=== PATIENT | female | born 1975 | race Caucasian/White ===

== ENCOUNTER 2017-05-31 11:23 | Emergency (ER) | payer OTHER ==
[2017-05-31 11:33] VITALS: TEMP 97.8; BMI 29.0
--- NOTE | 2017-05-31 12:06 | PDOC ---
Attending Attestation - Resident Resident Name: Flynn Pulido - ED Attending Attestation I have performed the following: I have examined & evaluated the patient, The case was reviewed & discussed with the resident, I agree w/resident's findings & plan, Exceptions are as noted - HPI HPI: 05/31/17 12:04 41y F hx of gastritis, presents with complaint of abdominal pain. Pt notes that she had mild epigastric pain yesterday but today, the pain got worse, and is assoiated with nausea w/o vomiting as well asl several episodes of watery brown stool. Dneies any melena, bpr. Pt also notes she feels 'shaky', but denies and cp, meyer, hemoptysis, leg sweling. Pt notes one prior episode of similar symptoms last year. No recent travel or sick contacts. No abx use. surgical hx - tubal ligation GENERAL: The patient is awake, alert, and fully oriented, Nontoxic - in no acute distress. HEAD: Normocephalic, atraumatic. EYES: extraocular movements intact, sclera anicteric, conjunctiva clear. ENT: Normal voice, Moist mucous membranes. NECK: Normal range of motion, supple LUNGS: Breath sounds equal, clear to auscultation bilaterally. No wheezes, no rhonchi, no rales. HEART: Regular rate and rhythm, normal S1 and S2 without murmur, rub or gallop. ABDOMEN: active bowel sounds in all 4 quadrants, mild diffuse tenderness, No guarding, no rebound. No CVA tenderness EXTREMITIES: Normal range of motion, no edema. NEUROLOGICAL: No facial assymetry, Normal speech, moivng all 4 extremities spontaneously and symmetrically PSYCH: Normal mood, normal affect. SKIN: Warm, Dry, normal turgor, Differential includes possible gastritis, gastroenteritis. No focal localized tenderness suggest localized peritonitis Will obtain blood work Zofran, morphine, Pepcid and Maalox for symptomatic relief 05/31/17 13:36 pt feeling improved abd soft nontender labs unremarkble will dc the pt with supporitve measures suspect gastroenteritis pmd fu return precautions were discussed - Physicial Exam PE: 06/01/17 20:25 see above - Medical Decision Making 06/01/17 20:25 se eabove Heart Score/ECG Review - ECG Impressions Comment:: 05/31/17 13:16 Twelve-lead EKG was performed and reviewed by me. There is normal sinus rhythm with a normal rate. Rate of 86 Incomplete right bundle-branch block Inverted T waves and flattening in the septal leads No Prior EKGs for comparison
[2017-05-31] MEDS ORDERED: SODIUM CHLORIDE 1,000 ML IV STA (12:12)
[2017-05-31] MEDS ORDERED: ONDANSETRON 4 MG/2 ML VIAL IVPUSH ONE (12:12)
[2017-05-31] MEDS ORDERED: FAMOTIDINE 20 MG/50 ML IVPB 20 MG/50 ML MG IVPB ONE ×2 (12:12→12:32)
[2017-05-31] MEDS ORDERED: MAG HYDROX/AL HYDROX/SIMETH 30 ML UNIT-DOSE CUP PO ONE (12:13)
--- NOTE | 2017-05-31 12:27 | PDOC ---
History of Present Illness - General Chief Complaint: Diarrhea Stated Complaint: BLOOD PRESSURE PROBLEM Time Seen by Provider: 05/31/17 11:54 - History of Present Illness Initial Comments: 05/31/17 12:21 The patient is a 41 year old with a history of anxiety and gastritis who presents for evaluation of epigastric abdominal pain and diarrhea. The patient reports having an episode of increased anxiety and chills with crying 1 hour prior to presentation in the ED. She states that those symptoms have since resolved, but she is now experiencing epigastric burning abdominal pain that is similar to her prior gastritis with associated nausea without vomiting and some diarrhea. She otherwise denies fevers, SOB, chest pain, or changes with urination or bowel movements. Past History - Past Medical History Allergies/Adverse Reactions: Allergies Allergy/AdvReac Type Severity Reaction Status Date / Time No Known Allergies Allergy Verified 05/31/17 11:26 Home Medications: Ambulatory Orders NK [No Known Home Medication] 05/31/17 COPD: No GI Disorders: Yes (gastritis) Other medical history: panic attacks - Suicide/Smoking/Psychosocial Hx Smoking History: Never smoked Have you smoked in the past 12 months: No Information on smoking cessation initiated: No Hx Alcohol Use: No Drug/Substance Use Hx: No Substance Use Type: None Review of Systems - Review of Systems Comments:: 05/31/17 12:27 Constitutional: No fevers, fatigue, malaise HEENT: No Rhinorrhea, nasal congestion, visual changes Cardiovascular: No chest pain, syncope, palpitations, lightheadedness Respiratory: No Cough, SOB, Hemoptysis, Gastrointestinal: Epigastric abdominal pain, Nausea, Diarrhea. No Vomiting, Constipation, Melena Genitourinary: No Dysuria, Frequency, Urgency, Hesitancy, Hematuria, Flank pain Musculoskeletal: No Myalgia, arthralgia Skin: No rashes, itching, bruising, pallor Neurologic: No Headache, Dizziness, Numbness, Weakness, or Tingling Psychiatric: No Hallucinations. No SI or HI *Physical Exam - Vital Signs Last Vital Signs Temp Pulse Resp BP Pulse Ox 97.8 F 88 16 120/72 99 05/31/17 11:27 05/31/17 11:54 05/31/17 11:54 05/31/17 11:54 05/31/17 12:07 - Physical Exam Comments: 05/31/17 12:34 General Appearance: Nourished. No Apparent Distress HEENT: EOMI, BLAKE. No Pharyngeal Erythema, Tonsillar Exudate, Tonsillar Erythema Neck: No Cervical Lymphadenopathy Respiratory/Chest: Lungs Clear, Normal Breath Sounds. No Crackles, Rales, Rhonchi, Wheezing Cardiovascular: Regular Rhythm, Regular Rate. No Murmur, Gallops, Rubs Gastrointestinal/Abdominal: Normal Bowel Sounds, Soft. Mild epigastric tenderness to palpation. No Guarding, Rebound, Musculoskeletal: No CVA Tenderness Extremity: Normal Capillary Refill Integumentary: Normal Color, Dry, Warm Neurologic: Fully Oriented, Alert, Normal Mood/Affect, Normal Response, ED Treatment Course - LABORATORY CBC & Chemistry Diagram: 05/31/17 12:15 05/31/17 12:15 Medical Decision Making - Medical Decision Making 05/31/17 12:36 The patient is a 41 year old with a history of anxiety and gastritis who presents for evaluation of epigastric abdominal pain and diarrhea. Differential includes but is not limited to: Gastritis, Gastroenteritis, pancreatitis, cholecysitis, infectious, metabolic derangement. Given the patient's physical exam and history, it is likely her symptoms are due to Gastritis. We will obtain a cbc, cmp, lipase, ekg to evaluate for other possible etiologies. We will treat here in the ER with iv fluids, pepcid, zofran, and mylanta. We will continue to monitor and reassess. 05/31/17 13:41 cbc, cmp, lipase are unremarkable. The patient reports significant improvement in her symptoms. We are comfortable discharging the patient home at this time with close primary care provider follow up. We discuss return precautions with the patient including worsening pain or vomiting. The patient voiced understanding and is agreeable with the plan. *DC/Admit/Observation/Transfer Diagnosis at time of Disposition: Nausea Abdominal pain Qualifiers: Abdominal location: unspecified location Qualified Code(s): R10.9 - Unspecified abdominal pain Diarrhea Qualifiers: Diarrhea type: unspecified type Qualified Code(s): R19.7 - Diarrhea, unspecified - Discharge Dispostion Disposition: HOME Condition at time of disposition: Good Admit: No - Referrals Referrals: Ian Mahoney MD [Primary Care Provider] - - Patient Instructions Printed Discharge Instructions: DI for Abdominal Pain-Adult Additional Instructions: Please return to the ER if you experience concerning or worsening symptoms including worsening abdominal pain, vomiting, fevers, or difficulty breathing. Your lab results were normal here in the ER. It is important that you call your primary care provider to schedule a follow up appointment within 2-3 days to further discuss management of your symptoms. Por favor, regrese a la lisa de emergencias si experimenta problemas o empeoramiento de los sntomas incluyendo el empeoramiento del dolor abdominal, v mitos, fiebres o dificultad para respirar. Los resultados de tu laboratorio fueron normales aqu en urgencias. Es importante que llame a cuenca proveedor de atencin primaria para programar kaiden katlyn de seguimiento dentro de 2-3 dickerson para discutir ms sobre la administraci n de rob sntomas. Print Language: KHMER - Post Discharge Activity
[2017-05-31 12:28] LABS: EOS % 0.3 % (0-4.5); HEMATOCRIT 39.8 % (32.4-45.2); HEMOGLOBIN 13.3 GM/dL (10.7-15.3); LYMPH % 13.5 % (8-40); MCH 29.5 pg (25.7-33.7); MCHC 33.4 g/dl (32.0-36.0); MEAN CELL VOLUME 88.2 fl (80-96); MEAN PLT VOLUME 8.6 fl (7.5-11.1); MONO % 6.4 % (3.8-10.2); NEUT % 78.8 % (42.8-82.8); PLATELET COUNT 235 K/MM3 (134-434); RBC 4.51 M/mm3 (3.60-5.2); RDW 13.7 % (11.6-15.6); WHITE BLOOD COUNT 9.4 K/mm3 (4.0-10.0)
[2017-05-31] MEDS ORDERED: MAG HYDROX/AL HYDROX/SIMETH 30 ML UNIT-DOSE CUP ONE (12:32)
[2017-05-31] MEDS ORDERED: ONDANSETRON 4 MG/2 ML VIAL ONE (12:32)
[2017-05-31] MEDS ORDERED: morphine CARPU-JECT 2 MG/1 ML DISP.SYRIN IVPUSH ONE (12:38)
[2017-05-31] MEDS ORDERED: MORPHINE SULFATE 10 MG/1 ML *VIAL ONE (12:49)
[2017-05-31 12:58] LABS: ALBUMIN 3.9 g/dl (3.4-5.0); ALK PHOS 78 U/L (45-117); ANION GAP 15 (8-16); BILIRUBIN,TOTAL 0.4 mg/dL (0.2-1.0); BLOOD UREA NITROGEN 14 mg/dL (7-18); CALCIUM 8.5 mg/dL (8.5-10.1); CHLORIDE 104 mmol/L (98-107); CO2 22 mmol/L (21-32); CREATININE 0.8 mg/dL (0.55-1.02); GLUCOSE,RANDOM 92 mg/dL (74-106); LIPASE 100 U/L (73-393); POTASSIUM 3.9 mmol/L (3.5-5.1); SGOT/AST 20 U/L (15-37); SGPT/ALT 24 U/L (12-78); SODIUM 141 mmol/L (136-145); TOT PROT 7.5 g/dl (6.4-8.2)
[2017-05-31 15:10] VITALS: BP 120/78; PULSE 78
--- NOTE | 2017-06-01 10:46 | EKG ---
Test Reason : Blood Pressure : / mmHG Vent. Rate : 086 BPM Atrial Rate : 086 BPM P-R Int : 130 ms QRS Dur : 094 ms QT Int : 384 ms P-R-T Axes : 058 061 026 degrees QTc Int : 459 ms NORMAL SINUS RHYTHM POSSIBLE LEFT ATRIAL ENLARGEMENT INCOMPLETE RIGHT BUNDLE BRANCH BLOCK T WAVE ABNORMALITY, CONSIDER ANTERIOR ISCHEMIA ABNORMAL ECG NO PREVIOUS ECGS AVAILABLE Confirmed by SWEETIE RIVER MD ([id number]) on 06/01/2017 10:46:30 AM Referred By: Confirmed By:SWEETIE RIVER MD
== END 2017-05-31 14:30 | disposition home or self-care (01) ==
LOC: JER 11:23
PROC: 3E033NZ Introduction of Analgesics, Hypnotics, Sedatives into Peripheral Vein, Percutaneous Approach (ICD-10-PCS; principal; 2017-05-31)
PROC: 3E033GC Introduction of Other Therapeutic Substance into Peripheral Vein, Percutaneous Approach (ICD-10-PCS; 2017-05-31)
PROC: 3E0337Z Introduction of Electrolytic and Water Balance Substance into Peripheral Vein, Percutaneous Approach (ICD-10-PCS; 2017-05-31)
DX: R10.9 Unspecified abdominal pain (principal); R19.7 Diarrhea, unspecified; R11.0 Nausea; F41.9 Anxiety disorder, unspecified
CPT/HCPCS: 36415; 80053; 83690; 85025; 93005; 93010; 99283-25

== ENCOUNTER 2017-09-06 02:13 | Emergency (ER) | payer OTHER ==
[2017-09-06 02:34] VITALS: BP 124/61; PULSE 89; TEMP 98.9; BMI 27.6
--- NOTE | 2017-09-06 02:44 | PDOC ---
History of Present Illness - General Chief Complaint: Injury Stated Complaint: INJURY TO FINGER Time Seen by Provider: 09/06/17 02:23 History Source: Patient Exam Limitations: No Limitations - History of Present Illness Initial Comments: 09/06/17 02:45 Best Contact:[phone] PCP:Dr. Mahoney Pmhx:None Pshx:N/A Allergies:NKDA FH:0 Social Hx: Cigarettes/ 0 Alcohol/ 0 Drugs/0 LMP:08/29/2017 41-year-old female who is right hand dominant presents to the ER complaining of a laceration to the distal region of her right index finger. Patient states she accidentally closed the door onto her finger. Patient denies extremity numbness or tingling sensation. Patient denies any other complaints. 09/06/17 04:44 PROCEDURE NOTE Right distal second digit. 3.5 cm left laceration from the distal lateral aspect going midpoint to the volar pad And nail laceration noticed after removing the distal aspect from the mid section to distal Betadine prep 1% lidocaine/digital block Copious irrigation normal saline Mid to distal region nail removed 5....5.0 Prolene simple interrupted skin 3....4.0 chromic gut simple interrupted on the nailbed Bacitracin Telfa Curlex Past History - Past Medical History Allergies/Adverse Reactions: Allergies Allergy/AdvReac Type Severity Reaction Status Date / Time No Known Allergies Allergy Verified 09/06/17 02:32 Home Medications: Ambulatory Orders Famotidine [Pepcid -] 40 mg PO DAILY #30 tablet 05/31/17 Cephalexin Monohydrate [Keflex -] 500 mg PO BID #14 capsule 09/06/17 COPD: No GI Disorders: Yes (gastritis) - Suicide/Smoking/Psychosocial Hx Smoking History: Never smoked Have you smoked in the past 12 months: No Information on smoking cessation initiated: No Hx Alcohol Use: No Drug/Substance Use Hx: No Substance Use Type: None Review of Systems - Review of Systems Able to Perform ROS?: Yes Comments:: 09/06/17 02:46 CONSTITUTIONAL: Absent: fever, chills, diaphoresis, generalized weakness, malaise, loss of appetite MUSCULOSKELETAL: Absent: myalgia, arthralgia, joint swelling SKIN: Absent: rash, itching, pallor HEMATOLOGIC/IMMUNOLOGIC: Absent: easy bleeding, easy bruising, lymphadenopathy, frequent infections Right second digit Distal laceration Denies numbness or tingling sensation Is the patient limited Guatemalan proficient: No *Physical Exam - Vital Signs Last Vital Signs Temp Pulse Resp BP Pulse Ox 98.9 F 89 18 124/61 99 09/06/17 02:32 09/06/17 02:32 09/06/17 02:32 09/06/17 02:32 09/06/17 02:32 - Physical Exam Comments: 09/06/17 02:48 Right second digit 3 cm transverse laceration from the lateral proximal nail fold wrapping around the volar pad 2 point discrimination intact Capillary refill less than 2 seconds Decreased range of motion due to pain GENERAL: Well developed, well nourished. Awake and alert. No acute distress. MUSCULOSKELETAL Normal range of motion at all joints. No bony deformities or tenderness. No CVA tenderness. EXTREMITIES: No cyanosis. No clubbing. No edema. No calf tenderness. SKIN: Warm and dry. Normal capillary refill. No rashes. No jaundice. ED Treatment Course - RADIOLOGY Radiograph Interpretation: 09/06/17 03:11 Right second digit: TUFT Fracture *DC/Admit/Observation/Transfer Diagnosis at time of Disposition: Finger fracture, right Qualifiers: Encounter type: initial encounter Finger: index finger Fracture type: open Phalanx: distal Fracture alignment: nondisplaced Qualified Code(s): S62.660B - Nondisplaced fracture of distal phalanx of right index finger, initial encounter for open fracture Finger laceration Qualifiers: Encounter type: initial encounter Finger: index finger Damage to nail status: without damage Foreign body presence: without foreign body Laterality: right Qualified Code(s): S61.210A - Laceration without foreign body of right index finger without damage to nail, initial encounter - Discharge Dispostion Disposition: HOME Condition at time of disposition: Stable Decision to Admit order: No - Prescriptions Prescriptions: Cephalexin Monohydrate [Keflex -] 500 mg PO BID #14 capsule - Referrals Referrals: Ian Mahoney MD [Primary Care Provider] - Joe Valles MD [Staff Physician] - - Patient Instructions Printed Discharge Instructions: DI for Finger Fracture, DI for Laceration Repair -- Complex Suture Additional Instructions: Keep the incision clean and dry for 24 hours. After 24 hours, you may allow the soap and water to rinse off your incision. Avoid direct pressure of the water to the incision. Pat the incision dry with a clean clothe. Apply a small amount of bacitracin onto the incision. Cover the incision loosely with a bandaid. Take tylenol/motrin as needed for pain. Follow up with your physician or the ER in 48 hours for a wound check. Return to the ER if you notice red streaks, increase redness/swelling/severe pain to the incision. Suture removal in 11 days. - Post Discharge Activity
[2017-09-06] MEDS ORDERED: DIPHTH,PERTUSS(ACELL),TET 0.5 ML DISP.SYRIN IM ONE (03:10)
[2017-09-06] MEDS ORDERED: CEPHALEXIN MONOHYDRATE 500 MG CAPSULE (UD) PO ONE (03:32)
[2017-09-06] MEDS ORDERED: CEPHALEXIN MONOHYDRATE 500 MG CAPSULE (UD) ONE (03:43)
== END 2017-09-06 04:40 | disposition home or self-care (01) ==
LOC: JER 02:13
PROC: 0HQFXZZ Repair Right Hand Skin, External Approach (ICD-10-PCS; principal; 2017-09-06)
PROC: 0HQQXZZ Repair Finger Nail, External Approach (ICD-10-PCS; 2017-09-06)
PROC: 3E0234Z Introduction of Serum, Toxoid and Vaccine into Muscle, Percutaneous Approach (ICD-10-PCS; 2017-09-06)
DX: S62.660B Nondisplaced fracture of distal phalanx of right index finger, initial encounter for open fracture (principal); W23.0XXA Caught, crushed, jammed, or pinched between moving objects, initial encounter; Y93.9 Activity, unspecified; Y92.9 Unspecified place or not applicable
CPT/HCPCS: 11760; 12002; 73140-TC-RT-FY; 90471; 90715; 99281-25

== ENCOUNTER 2017-09-16 11:54 | Emergency (ER) | payer OTHER ==
[2017-09-16 11:59] VITALS: BP 116/55; PULSE 74; TEMP 98; BMI 25.5
--- NOTE | 2017-09-16 12:49 | PDOC ---
History of Present Illness - General Chief Complaint: Suture/Staple Removal(Here) Stated Complaint: REVISIT, WOUND CHECK - History of Present Illness Initial Comments: 42-year-old female presents for evaluation of suture removal right second finger. She's had no complications since last seen in the emergency room. 09/16/17 12:44 Past History - Past Medical History Allergies/Adverse Reactions: Allergies Allergy/AdvReac Type Severity Reaction Status Date / Time No Known Allergies Allergy Verified 09/16/17 11:57 Home Medications: Ambulatory Orders Famotidine [Pepcid -] 40 mg PO DAILY #30 tablet 05/31/17 Cephalexin Monohydrate [Keflex -] 500 mg PO BID #14 capsule 09/06/17 Ibuprofen 800 mg PO TID #30 tablet 09/08/17 traMADol HCL [Ultram -] 50 mg PO BID PRN #10 tablet MDD 2 09/08/17 COPD: No DVT: No Dementia: No GI Disorders: Yes (gastritis) - Immunization History Immunization Up to Date: Yes - Suicide/Smoking/Psychosocial Hx Smoking History: Never smoked Have you smoked in the past 12 months: No Information on smoking cessation initiated: No Hx Alcohol Use: No Drug/Substance Use Hx: No Substance Use Type: None Review of Systems - Review of Systems All Other Systems: Reviewed and Negative *Physical Exam - Vital Signs Last Vital Signs Temp Pulse Resp BP Pulse Ox 98.0 F 74 18 116/55 100 09/16/17 11:57 09/16/17 11:57 09/16/17 11:57 09/16/17 11:57 09/16/17 11:57 - Physical Exam Comments: Right second finger Prolene sutures are in place along with chromic gut in the nail. 09/16/17 12:44 Medical Decision Making - Medical Decision Making Using a needle cryogenic transport driver an 11 blade the Prolene sutures were removed from the skin and the chromic gut sutures that are in the nail were trimmed down to their base and was wash with soap and water and dry sterile dressing was placed this was tolerated well. 09/16/17 12:45 *DC/Admit/Observation/Transfer Diagnosis at time of Disposition: Visit for suture removal - Discharge Dispostion Disposition: HOME Condition at time of disposition: Stable Decision to Admit order: No - Referrals Referrals: Ian Mahoney MD [Primary Care Provider] - Arnav Mcallister MD [Staff Physician] - - Patient Instructions Printed Discharge Instructions: DI for Suture Removal Additional Instructions: Por favor regrese a la lisa de emergencias si experimenta dolor, drenaje o enrojecimiento en la herida. Mantngalo limpio y seco temi las prximas 48 horas, lavndolo con agua y jabn 2-3 veces al da. Por favor, siga con la ciruga de mano para obtener ms opciones de evlauacin y tratamiento. Print Language: BELGIAN - Post Discharge Activity
== END 2017-09-16 12:52 | disposition home or self-care (01) ==
LOC: JERFT 11:54
DX: Z48.02 Encounter for removal of sutures (principal)
CPT/HCPCS: 99281-25

== ENCOUNTER 2020-12-08 19:32 | Emergency (ER) | payer OTHER ==
[2020-12-08 19:36] VITALS: BP 128/61; PULSE 75; TEMP 98.2; BMI 27.9
== END 2020-12-08 20:58 | disposition home or self-care (01) ==
LOC: JERFT 19:32
DX: K08.89 Other specified disorders of teeth and supporting structures (principal)
CPT/HCPCS: 99281-25

== ENCOUNTER 2023-12-01 11:19 | Emergency (ER) | payer OTHER ==
[2023-12-01 11:29] VITALS: BP 119/75; PULSE 82; RESP 18; TEMP 98.4; BMI 32.3
[2023-12-01] MEDS ORDERED: KETOROLAC TROMETHAMINE 30 MG/1 ML VIAL ONE (12:25)
[2023-12-01] MEDS: KETOROLAC TROMETHAMINE 30 MG/1 ML VIAL IM ONE (12:29)
== END 2023-12-01 14:04 | disposition home or self-care (01) ==
LOC: JERFT 11:19
PROC: 3E0133Z Introduction of Anti-inflammatory into Subcutaneous Tissue, Percutaneous Approach (ICD-10-PCS; principal; 2023-12-01)
DX: M77.52 Other enthesopathy of left foot and ankle (principal); M25.572 Pain in left ankle and joints of left foot; R20.0 Anesthesia of skin
CPT/HCPCS: 73610-TC-LT-FY; 73630-TC-LT; 96372; 99284-25

== ENCOUNTER 2024-01-31 19:57 | Emergency (ER) | payer OTHER ==
[2024-01-31 20:15] VITALS: BP 151/90; PULSE 83; RESP 18; TEMP 98; BMI 32.3
[2024-01-31] MEDS ORDERED: AMOX TR/POT CLAV 500MG/125MG TABLETS (FP) ONE (21:41)
[2024-01-31] MEDS ORDERED: KETOROLAC TROMETHAMINE 30 MG/1 ML VIAL ONE (21:41)
[2024-01-31] MEDS: KETOROLAC TROMETHAMINE 30 MG/1 ML VIAL IM ONE (21:47)
[2024-01-31] MEDS: AMOXICILLIN 500 MG CAPSULE (FP) PO ONE (21:47)
== END 2024-01-31 22:18 | disposition home or self-care (01) ==
LOC: JERFT 19:57
PROC: 3E0233Z Introduction of Anti-inflammatory into Muscle, Percutaneous Approach (ICD-10-PCS; principal; 2024-01-31)
DX: K05.6 Periodontal disease, unspecified (principal); K08.89 Other specified disorders of teeth and supporting structures
CPT/HCPCS: 96372; 99284-25